=== PATIENT | female | born 1935 | race African-American/Black ===

== ENCOUNTER 2016-09-27 08:30 | Observation (INO) | payer OTHER ==
[~2016-09-27] VITALS: Ht 152.4 cm; Wt 66.3 kg
[~2016-09-27 08:30] MED LIST: ACET-689 PO; ALBUTEROL0.083 % IN; ASPIRIN ADULT L81 MG OR; BENICAR40 MG PO; CEFD300C2 PO; CEFTRIAXONE250 MG IJ; FLUT0.05 NAS; FOSAMAX PO; IBUPROFEN200 MG OR; IPRASOL5 IN; JANUMET1 TA1 PO; LEVEMIR FLEXPEN SC; LIPITOR20 MG PO; LOFIBRA160 MG PO; METF500T PO; PEPCID40 MG OR; [UNRECOGNIZED DRUG - OTHER] PO; [UNRECOGNIZED DRUG - SUPPLY]; [UNRECOGNIZED DRUG - SUPPLY]; [UNRECOGNIZED DRUG - SUPPLY]
[2016-09-27 10:48] VITALS: BP 143/63; TEMP 98.2; Ht 152.4 cm; Wt 66.3 kg
[2016-09-27 10:52] LABS: PLATELET COUNT 588 K/uL (152-353)
[2016-09-27 10:57] LABS: POTASSIUM 4.7 mmol/L (3.6-5.2); SODIUM 136 mmol/L (136-145)
[2016-09-27 12:00] VITALS: BP 154/54; TEMP 98.1
[2016-09-27 16:00] VITALS: BP 187/66; TEMP 98.1
[2016-09-27] MEDS ORDERED: BENICAR HCT1 TA1 PO (19:15)
[2016-09-27] MEDS ORDERED: TRICOR145 M1 PO (19:15)
[2016-09-27 20:15] VITALS: BP 181/71; TEMP 98.4
[2016-09-28 00:29] VITALS: BP 167/70; TEMP 97.9
[2016-09-28 05:44] VITALS: BP 190/83; TEMP 99.6
[2016-09-28 06:47] LABS: PLATELET COUNT 511 K/uL (152-353)
[2016-09-28 07:05] LABS: POTASSIUM 4.3 mmol/L (3.6-5.2)
[2016-09-28 08:00] VITALS: BP 147/78; TEMP 97.9
[2016-09-28 11:37] VITALS: BP 169/71; TEMP 98.2
--- NOTE | 2016-09-28 13:33 | NUR ---
IV SITE D/C'D WITH TIP INTACT AND SITE CARE DONE. D/C INSTRUCTIONS GIVEN TO PT AND DAUGHTER AND BOTH VERBALIZES UNDERSTANDING. PT OUT VIA W/C PER PCT WITH NAD.
== END 2016-09-28 13:35 | disposition home or self-care (01) ==
LOC: MED/SURG 08:30
PROVIDERS: Internal Medicine; ADMIT Internal Medicine
PROC: 30233N1 Transfusion of Nonautologous Red Blood Cells into Peripheral Vein, Percutaneous Approach (ICD-10-PCS; principal; 2016-09-27)
DX: D50.8 Other iron deficiency anemias (principal); E11.9 Type 2 diabetes mellitus without complications; D47.3 Essential (hemorrhagic) thrombocythemia; I10 Essential (primary) hypertension; D72.828 Other elevated white blood cell count; R06.02 Shortness of breath
CPT/HCPCS: 36415; 36591; 80053; 80061; 82232; 82550; 82607; 82728; 82747; 82805; 82948; 83540; 83550; 83880; 84165; 84166; 84484; 85027; 85379; 86318; 86850; 86900; 86901; 86922; 93005; 94760; 99220; G0378; G0379; J1885; J1940; J3490; P9016; Q9963

== ENCOUNTER 2016-10-08 08:15 | Outpatient (CLI) | payer OTHER ==
[~2016-10-08 08:15] MED LIST changes: +BENICAR HCT1 TA1 PO; +TRICOR145 M1 PO
[2016-10-08 09:55] LABS: PLATELET COUNT 528 K/uL (152-353)
[2016-10-08 11:16] LABS: POTASSIUM 4.7 mmol/L (3.6-5.2); SODIUM 131 mmol/L (136-145)
== END 2016-10-08 19:06 | disposition home or self-care (01) ==
LOC: LAB 08:15
PROVIDERS: Family Medicine
DX: E11.9 Type 2 diabetes mellitus without complications (principal); I10 Essential (primary) hypertension; E55.9 Vitamin D deficiency, unspecified; D64.89 Other specified anemias; E78.4 Other hyperlipidemia
CPT/HCPCS: 80053; 81000; 82043; 82306; 82570; 82607; 82746; 83036; 84439; 84443; 85027

== ENCOUNTER 2016-12-26 10:51 | Outpatient (CLI) | payer OTHER | END 2016-12-26 19:09 | disposition home or self-care (01) | LOC: LAB 10:51 | DX: R53.81 Other malaise (principal); D47.3 Essential (hemorrhagic) thrombocythemia; D72.828 Other elevated white blood cell count | CPT/HCPCS: 82272 ==

== ENCOUNTER 2016-12-30 09:36 | Outpatient (CLI) | payer OTHER | END 2016-12-30 19:19 | disposition home or self-care (01) | LOC: LAB 09:36 | DX: D64.89 Other specified anemias (principal); R53.81 Other malaise; D47.3 Essential (hemorrhagic) thrombocythemia | CPT/HCPCS: 82272 ==

== ENCOUNTER 2017-02-11 12:36 | Outpatient (CLI) | payer OTHER ==
[2017-02-11 13:17] LABS: PLATELET COUNT 476 K/uL (152-353)
[2017-02-11 13:45] LABS: SODIUM 135 mmol/L (136-145)
== END 2017-02-11 19:22 | disposition home or self-care (01) ==
LOC: LAB 12:36
PROVIDERS: Family Medicine
DX: E11.9 Type 2 diabetes mellitus without complications (principal); I10 Essential (primary) hypertension; M81.0 Age-related osteoporosis without current pathological fracture; K21.9 Gastro-esophageal reflux disease without esophagitis; E61.1 Iron deficiency
CPT/HCPCS: 80053; 80061; 81000; 82043; 82306; 82570; 83036; 83540; 83735; 84439; 84443; 84550; 85027

== ENCOUNTER 2017-07-01 12:26 | Outpatient (CLI) | payer OTHER ==
[2017-07-01 13:23] LABS: PLATELET COUNT 465 K/uL (152-353)
[2017-07-01 13:51] LABS: POTASSIUM 4.9 mmol/L (3.6-5.2); SODIUM 137 mmol/L (136-145)
== END 2017-07-01 21:18 | disposition home or self-care (01) ==
LOC: LAB 12:26
PROVIDERS: Internal Medicine
DX: E11.9 Type 2 diabetes mellitus without complications (principal)
CPT/HCPCS: 80053; 80061; 81000; 82043; 82570; 83036; 84439; 84443; 84550; 85027

== ENCOUNTER 2017-09-02 14:38 | Outpatient (CLI) | payer OTHER ==
[2017-09-02 15:08] LABS: PLATELET COUNT 503 K/uL (152-353)
[2017-09-02 15:24] LABS: SODIUM 133 mmol/L (136-145)
== END 2017-09-02 15:40 | disposition home or self-care (01) ==
LOC: LAB 14:38
PROVIDERS: Internal Medicine
DX: R10.84 Generalized abdominal pain (principal)
CPT/HCPCS: 80053; 81000; 82150; 83690; 85027

== ENCOUNTER 2017-09-03 11:44 | Outpatient (CLI) | payer OTHER | END 2017-09-03 12:45 | disposition home or self-care (01) | LOC: LAB 11:44 | DX: R10.84 Generalized abdominal pain (principal) | CPT/HCPCS: 81000 ==

== ENCOUNTER 2017-09-08 08:26 | Outpatient (CLI) | payer OTHER | END 2017-09-08 18:00 | disposition home or self-care (01) | LOC: US 08:26 | DX: R10.84 Generalized abdominal pain (principal) ==

== ENCOUNTER 2018-06-09 16:38 | Outpatient (CLI) | payer OTHER | END 2018-06-09 19:45 | disposition home or self-care (01) | LOC: RAD 16:38 | DX: R07.81 Pleurodynia (principal) ==

== ENCOUNTER 2018-11-05 09:51 | Outpatient (CLI) | payer OTHER ==
[2018-11-05 10:18] LABS: PLATELET COUNT 487 K/uL (152-353)
[2018-11-05 10:36] LABS: POTASSIUM 4.9 mmol/L (3.6-5.2)
== END 2018-11-05 19:39 | disposition home or self-care (01) ==
LOC: LABW 09:51
PROVIDERS: Family Medicine
DX: E78.2 Mixed hyperlipidemia (principal); E11.9 Type 2 diabetes mellitus without complications; E55.9 Vitamin D deficiency, unspecified; K21.9 Gastro-esophageal reflux disease without esophagitis; Z87.39 Personal history of other diseases of the musculoskeletal system and connective tissue
CPT/HCPCS: 36415; 80053; 80061; 82306; 83036; 83735; 84439; 84443; 84550; 85027

== ENCOUNTER 2019-02-09 14:48 | Inpatient (IN) | payer OTHER ==
[~2019-02-09] VITALS: Ht 152.4 cm; Wt 65.3 kg
[2019-02-09 15:50] LABS: PLATELET COUNT 570 K/uL (152-353)
[2019-02-09 15:51] VITALS: BP 163/50; TEMP 98.6; Ht 152.4 cm; Wt 65.3 kg
[2019-02-09 16:13] LABS: POTASSIUM 5.4 mmol/L (3.6-5.2); SODIUM 120 mmol/L (136-145)
[2019-02-09 20:00] VITALS: BP 156/51; TEMP 97.9
[2019-02-09 21:52] LABS: PLATELET COUNT 537 K/uL (152-353)
[2019-02-09 22:08] LABS: POTASSIUM 4.5 mmol/L (3.6-5.2)
[2019-02-10] VITALS: BP 148/58; TEMP 98
[2019-02-10 04:00] VITALS: BP 154/63; TEMP 98.4
[2019-02-10 08:00] VITALS: BP 157/70; TEMP 98.2
[2019-02-10 12:00] VITALS: BP 161/66; TEMP 97.7
[2019-02-10 12:37] LABS: PLATELET COUNT 501 K/uL (152-353)
[2019-02-10 13:08] LABS: POTASSIUM 4.9 mmol/L (3.6-5.2); SODIUM 130 mmol/L (136-145)
[2019-02-10 16:00] VITALS: BP 173/63; TEMP 98.3
[2019-02-10] MEDS ORDERED: CETI10TA PO (19:10)
[2019-02-10] MEDS ORDERED: BENICAR HCT1 TA1 PO (19:11)
[2019-02-10] MEDS ORDERED: LANTUS SOL100 UNIT/M SC (19:12)
[2019-02-10] MEDS ORDERED: ENALAPRIL20 MG PO (19:12)
[2019-02-10] MEDS ORDERED: TIROSINT25 MCG PO (19:13)
[2019-02-10 20:00] VITALS: BP 112/61; TEMP 98
[2019-02-11] VITALS (7 sets, daily range): BP systolic 131–169; BP diastolic 59–78; TEMP 97.9–98.4
[2019-02-11 05:46] LABS: PLATELET COUNT 481 K/uL (152-353)
[2019-02-11 05:59] LABS: POTASSIUM 5.3 mmol/L (3.6-5.2)
[2019-02-12 05:05] VITALS: BP 151/62; TEMP 98
[2019-02-12 05:19] LABS: PLATELET COUNT 497 K/uL (152-353)
[2019-02-12 05:26] LABS: POTASSIUM 4.7 mmol/L (3.6-5.2)
[2019-02-12 08:00] VITALS: BP 155/55; TEMP 97.6
[2019-02-12 12:00] VITALS: BP 191/81; TEMP 98.1
== END 2019-02-12 13:50 | disposition home or self-care (01) | DRG 438 ==
LOC: MED/SURG 14:48
PROVIDERS: Family Medicine; ADMIT Internal Medicine
PROC: 30253N1 (ICD-10-PCS; principal; 2019-02-09)
PROC: 30253N1 (ICD-10-PCS; 2019-02-10)
DX: K85.80 Other acute pancreatitis without necrosis or infection (principal); J69.0 Pneumonitis due to inhalation of food and vomit; E87.1 Hypo-osmolality and hyponatremia; R05 Cough; E11.42 Type 2 diabetes mellitus with diabetic polyneuropathy; I10 Essential (primary) hypertension; M81.8 Other osteoporosis without current pathological fracture; E03.8 Other specified hypothyroidism; D64.89 Other specified anemias
CPT/HCPCS: 80053; 81000; 82150; 82550; 82553; 83690; 83735; 84100; 84439; 84443; 84484; 85027; 86850; 86900; 86901; 86922; 87070; 87205; 93005; 94640; 94644; 94664; 94760; J0696; J1650; J1815; J1940; J2405; J2543; J3490; P9016

== ENCOUNTER 2019-02-18 08:47 | Outpatient (CLI) | payer OTHER ==
[~2019-02-18 08:47] MED LIST changes: +CETI10TA PO; +ENALAPRIL20 MG PO; +LANTUS SOL100 UNIT/M SC; +TIROSINT25 MCG PO
== END 2019-02-18 19:20 | disposition home or self-care (01) ==
LOC: US 08:47
DX: R10.84 Generalized abdominal pain (principal)

== ENCOUNTER 2019-02-26 10:29 | Outpatient (CLI) | payer OTHER ==
[2019-02-26 10:57] LABS: PLATELET COUNT 559 K/uL (152-353)
[2019-02-26 11:03] LABS: POTASSIUM 4.8 mmol/L (3.6-5.2)
== END 2019-02-26 22:38 | disposition home or self-care (01) ==
LOC: LABW 10:29
PROVIDERS: Internal Medicine Gastroenterology
DX: R11.2 Nausea with vomiting, unspecified (principal)
CPT/HCPCS: 36415; 80053; 85027; 85651; 86140

== ENCOUNTER 2019-03-10 07:42 | Outpatient (CLI) | payer OTHER | END 2019-03-10 23:04 | disposition home or self-care (01) | LOC: CT 07:42 | DX: R11.2 Nausea with vomiting, unspecified (principal); R10.84 Generalized abdominal pain; R63.4 Abnormal weight loss | CPT/HCPCS: 36415; 82565; 84520 ==

== ENCOUNTER 2019-03-14 11:06 | Outpatient (CLI) | payer OTHER | END 2019-03-14 23:24 | disposition home or self-care (01) | LOC: RAD 11:06 | DX: M25.552 Pain in left hip (principal); M79.652 Pain in left thigh ==

== ENCOUNTER 2019-03-19 10:20 | Inpatient (IN) | payer OTHER ==
[~2019-03-19] VITALS: Ht 152.4 cm; Wt 65.6 kg
[2019-03-19 12:51] LABS: PLATELET COUNT 555 K/uL (152-353)
[2019-03-19 13:04] LABS: POTASSIUM 4.7 mmol/L (3.6-5.2)
[2019-03-19] MEDS ORDERED: PEPCID40 MG PO (15:51)
[2019-03-19] MEDS ORDERED: ALBUSOL INH (15:53)
[2019-03-19] MEDS ORDERED: METF500T PO (15:54)
[2019-03-19 18:32] VITALS: BP 163/66; TEMP 98; Ht 152.4 cm; Wt 65.6 kg
[2019-03-19 20:01] VITALS: BP 148/69; TEMP 97.9
[2019-03-20] VITALS (7 sets, daily range): BP systolic 138–186; BP diastolic 53–76; TEMP 97.6–98.1
[2019-03-20 05:13] LABS: PLATELET COUNT 563 K/uL (152-353)
[2019-03-20 05:23] LABS: POTASSIUM 4.4 mmol/L (3.6-5.2)
[2019-03-21] VITALS: BP 141/56; TEMP 98.3
[2019-03-21 03:50] VITALS: BP 112/58; TEMP 98.3
[2019-03-21 06:24] LABS: POTASSIUM 4.5 mmol/L (3.6-5.2)
[2019-03-21 06:27] LABS: PLATELET COUNT 630 K/uL (152-353)
[2019-03-21 08:00] VITALS: BP 187/68; TEMP 97.6
[2019-03-21 12:00] VITALS: BP 163/72; TEMP 97.6
[2019-03-21 16:00] VITALS: BP 150/70; TEMP 97.9
[2019-03-21 19:34] VITALS: BP 144/55; TEMP 98.1
[2019-03-22 04:02] VITALS: BP 167/64; TEMP 98
[2019-03-22 08:00] VITALS: BP 160/55; TEMP 97.9
[2019-03-22 12:00] VITALS: BP 162/68; TEMP 98.1
[2019-03-22 16:00] VITALS: BP 155/69; TEMP 97.7
[2019-03-22] MEDS ORDERED: LOSA50TA PO (17:00)
[2019-03-22] MEDS ORDERED: PANTOPRAZOLE 40MG TA PO (17:00)
[2019-03-22] MEDS ORDERED: RANI150T78 PO (17:01)
== END 2019-03-22 19:30 | disposition home or self-care (01) | DRG 536 ==
LOC: MED/SURG 10:20
PROVIDERS: ADMIT Internal Medicine
DX: S72.092A Other fracture of head and neck of left femur, initial encounter for closed fracture (principal); E87.1 Hypo-osmolality and hyponatremia; W18.39XA Other fall on same level, initial encounter; Y92.89 Other specified places as the place of occurrence of the external cause; D72.828 Other elevated white blood cell count; E11.9 Type 2 diabetes mellitus without complications; I10 Essential (primary) hypertension; E78.49 Other hyperlipidemia; Z90.81 Acquired absence of spleen; J45.998 Other asthma; M81.8 Other osteoporosis without current pathological fracture
CPT/HCPCS: 36415; 80048; 80053; 81000; 82306; 83036; 83690; 85027; 85651; 86140; 87040; J1815; J2270; J2405; J3490; Q9963

== ENCOUNTER 2019-06-14 12:01 | Inpatient (IN) | payer OTHER ==
[~2019-06-14] VITALS: Ht 152.4 cm; Wt 66.7 kg
[~2019-06-14 12:01] MED LIST changes: +ALBUSOL INH; +LOSA50TA PO; +PANTOPRAZOLE 40MG TA PO; +PEPCID40 MG PO; +RANI150T78 PO
[2019-06-14 12:18] VITALS: BP 152/68; TEMP 98.1
[2019-06-14 13:19] LABS: PLATELET COUNT 568 K/uL (152-353)
[2019-06-14 13:22] LABS: POTASSIUM 5.4 mmol/L (3.6-5.2)
[2019-06-14 15:46] VITALS: BP 157/78; TEMP 97.9; Ht 152.4 cm; Wt 66.7 kg
[2019-06-14 20:00] VITALS: BP 177/81; TEMP 98.1
[2019-06-15] VITALS: BP 140/65; TEMP 98.3
[2019-06-15] MEDS ORDERED: BENICAR40 MG PO (03:46)
[2019-06-15] MEDS ORDERED: LIPITOR20 MG PO (03:49)
[2019-06-15] MEDS ORDERED: DEXILANT60 M1 PO (03:52)
[2019-06-15] MEDS ORDERED: JANUMET1 TAB PO ×2 (03:59→04:54)
[2019-06-15 04:00] VITALS: BP 134/64; TEMP 98.2
[2019-06-15] MEDS ORDERED: METF500T PO (04:02)
[2019-06-15] MEDS ORDERED: EUTHYROX25 MCG PO (04:05)
[2019-06-15 05:31] LABS: PLATELET COUNT 521 K/uL (152-353)
[2019-06-15 08:00] VITALS: BP 100/67; TEMP 97.7
[2019-06-15 12:00] VITALS: BP 123/64; TEMP 98.3
[2019-06-15 16:00] VITALS: BP 114/60; TEMP 98.2
[2019-06-15 20:00] VITALS: BP 142/57; TEMP 97.7
[2019-06-16] VITALS: BP 141/63; BP 142/57; TEMP 97.7; TEMP 98.1
[2019-06-16 04:00] VITALS: BP 160/67; TEMP 98.6
[2019-06-16 05:33] LABS: PLATELET COUNT 540 K/uL (152-353)
[2019-06-16 05:58] LABS: POTASSIUM 4.8 mmol/L (3.6-5.2)
[2019-06-16 08:00] VITALS: TEMP 98.2
[2019-06-16 12:00] VITALS: BP 172/83; TEMP 98
[2019-06-16 16:00] VITALS: BP 179/75; TEMP 98.1
[2019-06-16 20:00] VITALS: BP 155/66; TEMP 97.8
[2019-06-17] VITALS: BP 131/70; TEMP 98.2
[2019-06-17 04:00] VITALS: BP 162/68; TEMP 96
[2019-06-17 05:13] LABS: PLATELET COUNT 547 K/uL (152-353)
[2019-06-17 05:52] LABS: POTASSIUM 5.6 mmol/L (3.6-5.2)
[2019-06-17 08:00] VITALS: BP 183/67; TEMP 97.9
[2019-06-17 12:00] VITALS: BP 145/64; TEMP 97.7
== END 2019-06-17 15:00 | disposition home or self-care (01) | DRG 202 ==
LOC: ED 12:01 → MED/SURG 14:15
PROVIDERS: Internal Medicine; ADMIT Family Medicine
DX: J20.9 Acute bronchitis, unspecified (principal); E87.1 Hypo-osmolality and hyponatremia; J45.901 Unspecified asthma with (acute) exacerbation; E11.42 Type 2 diabetes mellitus with diabetic polyneuropathy; D72.828 Other elevated white blood cell count; E11.43 Type 2 diabetes mellitus with diabetic autonomic (poly)neuropathy; K31.84 Gastroparesis; K21.9 Gastro-esophageal reflux disease without esophagitis; M81.8 Other osteoporosis without current pathological fracture; J32.8 Other chronic sinusitis
CPT/HCPCS: 36415; 80053; 81000; 82947; 85027; 87081; 87502; 87651; 94664; 96372; 99283; J0456; J1650; J1815; J2920; J3490; Q9963

== ENCOUNTER 2019-10-24 14:42 | Emergency (ER) | payer OTHER ==
[~2019-10-24] VITALS: Ht 152.4 cm; Wt 61.2 kg
[~2019-10-24 14:42] MED LIST changes: +DEXILANT60 M1 PO; +EUTHYROX25 MCG PO; +JANUMET1 TAB PO
[2019-10-24 15:57] LABS: PLATELET COUNT 464 K/uL (152-353)
[2019-10-24 16:03] LABS: POTASSIUM 5.2 mmol/L (3.6-5.2)
[2019-10-24 16:06] LABS: SODIUM 111 mmol/L (136-145)
[2019-10-24 16:15] VITALS: BP 68/13
[2019-10-24] MEDS ORDERED: ALLEGRA ALRG180 M1 PO (18:12)
[2019-10-24] MEDS ORDERED: OMEP40CA PO (18:12)
[2019-10-24] MEDS ORDERED: LEXAPRO10 MG PO (18:12)
[2019-10-24] MEDS ORDERED: BENZONATATE100 MG PO (18:13)
[2019-10-24] MEDS ORDERED: METOCLOPRAM5 MG PO (18:13)
[2019-10-24] MEDS ORDERED: ALBUSOL INH (18:14)
== END 2019-10-24 18:55 | disposition expired ==
LOC: ED 14:42
PROVIDERS: Emergency Medicine
PROC: 5A02215 Assistance with Cardiac Output using Pulsatile Compression, Continuous (ICD-10-PCS; principal; 2019-10-24)
PROC: 0BH17EZ Insertion of Endotracheal Airway into Trachea, Via Natural or Artificial Opening (ICD-10-PCS; 2019-10-24)
DX: I46.9 Cardiac arrest, cause unspecified (principal); D64.89 Other specified anemias; E87.1 Hypo-osmolality and hyponatremia
CPT/HCPCS: 31500; 36415; 36600; 43754; 51702; 80053; 82550; 82553; 82805; 83690; 83735; 84484; 85007; 85027; 87502; 92950; 93005; 96360; 96365; 96375; 99285; C1726; J0171; J1265